=== PATIENT | female | born 1985 | race Caucasian/White ===

== ENCOUNTER → 2017-09-14 | Outpatient (CLI) | payer BC | END | disposition home or self-care (01) | LOC: C.PAPS 18:05 | PROVIDERS: ATTEND Obstetrics & Gynecology | DX: Z01.419 Encounter for gynecological examination (general) (routine) without abnormal findings (principal) ==

== ENCOUNTER 2018-07-21 13:26 | Inpatient (IN) ==
[2018-07-21] MEDS ORDERED: OXYTOCIN 30 UNITS/500 ML BAG IV PRN ×2 (17:33)
[2018-07-21] MEDS ORDERED: PENICILLIN G POTASSIUM 6 MU in DEXTROSE 5% 250 ML IV STA (17:42)
[2018-07-21 17:56] LABS: Hematocrit (blood only) 36.6 % (37-47); Hemoglobin 12.1 g/dL (12.0-16.0); Mean Corpuscular Volume 85.1 fL (80-100); Mean Platelet Volume 10.9 fL (7.4-10.4); Platelet Count 157 K/uL (130-400); RDW Coefficient of Variation 14.1 % (11.5-14.5); RDW Standard Deviation 43.5 fL (36.4-46.3); White Blood Count 7.35 K/uL (4.8-10.8)
[2018-07-21 18:07] LABS: Mean Corpuscular Hgb Conc 33.1 g/dL (32-36)
[2018-07-21] MEDS: LACTATED RINGER'S 1,000 ML IV PRN ×2 (18:07→21:38)
--- NOTE | 2018-07-21 20:24 | History & Physical Report ---
Date of Service July 21, 2018 Assessment & Plan (1) Post term : 32yo at 40.6 weeks GA. IOL for post term . 1. Fetus: Cat 1 2. Labor: Oxytocin, AROM when complete on PCN 3. Vitals: WNL 4. GBS+: PCN 5: Pain: Epidural PRN (2) GBS carrier: (3) conceived through in vitro fertilization: History of Present Illness Primary Care Provider: NO PCP 32yo at 40.6 weeks GA. Patient present for late term IOL. complicated by IVF , Hx of HSV, GBS+. Denies VB, LOF or regular contractions. Good FM Allergies Allergy/AdvReac Type Severity Reaction Status Date / Time No Known Allergies Allergy Verified 07/21/18 17:37 Home Medications Home Medications Medication Instructions Recorded Confirmed Type PNV cmb#95-ferrous fumarate-FA 1 tab PO DAILY 07/21/18 07/21/18 History [] pantoprazole [Protonix] 40 mg PO DAILY 07/21/18 07/21/18 History valacyclovir [Valtrex] 500 mg PO DAILY 07/21/18 07/21/18 History Patient History Medical History and not yet delivered (Acute) History of Family History Other No pertinent family history Social History Preferred Language: Yi Communication Ability: Effective Beliefs That Will Affect Care: None marital status: Current Living Situation: Family Other Information That Helps Us Care for You: No Feels Safe at Home: Yes Safety Concerns: Feels Safe At This Time Smoking Status: Never smoker Hx Alcohol Use: No Hx Substance Use: No Physical Exam Genitourinary: OB Exam Abdomen: + vertex Manual OB Exam: + cervical dilation 2 cm, + cervical effacement 40% and + station -2 OB Exam Monitor Tracing: + external FHT monitor used, + external uterine monitor used and + category I Results & Data Vital Signs (Past 12 Hours) Vital Signs Temp Pulse Resp BP 07/21/18 19:45 18 07/21/18 19:17 80 119/77 07/21/18 18:30 18 07/21/18 18:17 85 123/84 07/21/18 16:37 36.8 C 84 18 123/80 07/21/18 16:27 84 123/80
[2018-07-21] MEDS ORDERED: ePHEDrine sulfate 50 MG/ML AMP ONE (21:52)
[2018-07-21] MEDS ORDERED: BUPIVACAINE 0.25% 30 ML VIAL ONE (21:52)
[2018-07-21] MEDS ORDERED: fentaNYL 2MCG/ML ROPIV 1.25MG/ML 100 ML BAG EPI ONE (21:53)
[2018-07-21] MEDS ORDERED: fentaNYL citrate 100 MCG/2 ML VIAL ONE (21:53)
[2018-07-21] MEDS: PENICILLIN G POTASSIUM 3 MU in DEXTROSE 5% 100 ML IV PRN (22:04)
--- NOTE | 2018-07-21 22:55 | Anesthesiology Consultation ---
Date of Service July 21, 2018 Assessment & Plan Chart Review Chart Review: Acceptable Risk for Labor Epidural Consults Requested none History Height/Weight Height: 5 ft 3 in Weight: 92.714 kg Allergies Allergy/AdvReac Type Severity Reaction Status Date / Time No Known Allergies Allergy Verified 07/21/18 17:37 Medications Home Medications Medication Instructions Recorded Confirmed Last Taken PNV cmb#95-ferrous fumarate-FA 1 tab PO DAILY 07/21/18 07/21/18 07/20/18 [] pantoprazole [Protonix] 40 mg PO DAILY 07/21/18 07/21/18 07/21/18 valacyclovir [Valtrex] 500 mg PO DAILY 07/21/18 07/21/18 07/20/18 Active Medications Generic Name Dose Route Start Last Admin Trade Name Freq PRN Reason Stop Dose Admin Lactated Ringer's 1,000 mls @ 125 mls/hr 07/21/18 17:33 07/21/18 22:15 Lr IV 07/23/18 17:32 0 mls/hr .Q8H PRN Infusion L&D Protocol Protocol Penicillin G Potassium 3 mu/ 106 mls @ 100 mls/hr 07/21/18 17:33 07/21/18 22:04 Dextrose IV 07/31/18 17:32 100 mls/hr Q4H PRN Administration Give until delivery Oxytocin 30 units in 500 mls @ 8 mls/hr 07/21/18 17:33 07/21/18 19:45 Pitocin IV 07/23/18 17:32 0.48 units/hr .Q24H PRN 8 mls/hr Labor Induction/Augmentation Titration Protocol 0.48 UNITS/HR Past Medical History Medical History and not yet delivered (Acute) History of Past Family History Family History Other No pertinent family history Social History Smoking Status: Never smoker Hx Alcohol Use: No Hx Substance Use: No Physical Exam Vital Signs Last Vital Signs Temp 36.8 C 07/21/18 16:37 Pulse 86 07/21/18 22:51 Resp 18 07/21/18 22:00 BP 111/69 07/21/18 22:51 Pulse Ox 97 07/21/18 22:49
[2018-07-21] MEDS ORDERED: NALOXONE HCL 1 MG in SODIUM CHLORIDE 0.9% 1000ML 1,000 ML IV PRN (22:57)
[2018-07-21] MEDS ORDERED: NALBUPHINE HCL INJ 10 MG/ML AMP IV PRN (22:57)
[2018-07-21] MEDS ORDERED: DiphenhydrAMINE HCL 50 MG/ML VIAL IV PRN (22:57)
[2018-07-21] MEDS ORDERED: NALOXONE HCL 0.4 MG/1 ML VIAL/CARP IV PRN (22:57)
[2018-07-21] MEDS ORDERED: fentaNYL 2MCG/ML ROPIV 1.25MG/ML 100 ML BAG EPI PRN (22:57)
--- NOTE | 2018-07-21 23:33 | Obstetrical Progress Note ---
Date of Service July 21, 2018 Assessment & Plan (1) Post term : 32yo at 40.6 weeks GA. IOL for post term . 1. Fetus: Cat 1 2. Labor: Oxytocin, AROM clear 3. Vitals: WNL 4. GBS+: PCN 5: Pain: Epidural PRN (2) GBS carrier: (3) conceived through in vitro fertilization: Subjective Doing well. Physical Exam Genitourinary: OB Exam Abdomen: + vertex Manual OB Exam: + cervical dilation (2.5), + cervical effacement 40%, + station -2 and + amniotic fluid clear OB Exam Monitor Tracing: + external FHT monitor used, + external uterine monitor used, + category I and + normal FHT variability Results & Data Vital Signs (Past 12 Hours) Vital Signs Temp Pulse Resp BP Pulse Ox 07/21/18 23:29 79 98 07/21/18 23:25 71 112/71 07/21/18 23:24 69 97 07/21/18 23:19 77 98 07/21/18 23:15 74 116/72 07/21/18 23:14 80 98 07/21/18 23:09 80 97 07/21/18 23:04 89 115/71 96 07/21/18 23:03 81 109/70 07/21/18 23:01 80 108/69 07/21/18 22:59 37.0 C 81 18 96 07/21/18 22:58 82 106/69 07/21/18 22:55 85 107/70 07/21/18 22:54 84 97 07/21/18 22:51 86 111/69 07/21/18 22:49 85 110/69 97 07/21/18 22:46 88 119/78 07/21/18 22:44 98 H 98 07/21/18 22:43 93 H 114/74 07/21/18 22:41 89 120/78 07/21/18 22:39 94 H 98 07/21/18 22:37 94 H 87 L 07/21/18 22:34 99 H 100 07/21/18 22:29 92 H 98 07/21/18 22:24 87 100 07/21/18 22:19 88 100 07/21/18 22:14 83 100 07/21/18 22:09 82 99 07/21/18 22:04 84 100 07/21/18 22:00 18 07/21/18 21:59 85 100 07/21/18 21:54 82 100 07/21/18 21:49 77 100 07/21/18 21:44 90 87 L 07/21/18 21:39 108 H 83 L 07/21/18 21:34 75 81 L 07/21/18 20:21 85 129/83 07/21/18 19:45 18 07/21/18 19:17 80 119/77 07/21/18 18:30 18 07/21/18 18:17 85 123/84 07/21/18 16:37 36.8 C 84 18 123/80 07/21/18 16:27 84 123/80
[2018-07-22] MEDS: PENICILLIN G POTASSIUM 3 MU in DEXTROSE 5% 100 ML IV PRN ×3 (01:56→10:16)
[2018-07-22] MEDS: LACTATED RINGER'S 1,000 ML IV PRN ×2 (01:56→05:28)
[2018-07-22] MEDS: ePHEDrine sulfate 50 MG/ML AMP IV PRN ×2 (04:53→05:15)
[2018-07-22] MEDS ORDERED: ONDANSETRON INJ 2 MG/ML 2 ML VIAL ONE (04:57)
[2018-07-22] MEDS ORDERED: ONDANSETRON INJ 2 MG/ML 2 ML VIAL IV PRN (04:59)
[2018-07-22] MEDS ORDERED: fentaNYL citrate 100 MCG/2 ML VIAL ONE (07:15)
[2018-07-22] MEDS ORDERED: BUPIVACAINE 0.25% 30 ML VIAL ONE (07:15)
[2018-07-22] MEDS ORDERED: OXYCODONE/ACETAMINOPHEN 5mg/325mg TAB PO PRN (12:53)
[2018-07-22] MEDS ORDERED: SUPERCREAM 0.870% 15 GM JAR EXT PRN (12:53)
[2018-07-22] MEDS ORDERED: BENZOCAINE 20% AER SPR 82.5 GM CAN EXT PRN (12:53)
[2018-07-22] MEDS ORDERED: miSOPROStol 200 MCG TAB PR ONE (12:53)
[2018-07-22] MEDS ORDERED: DIPHTHERIA/TETANUS/PERTUSSIS 0.5 ML SYR/VIAL IM ONE (12:53)
[2018-07-22] MEDS ORDERED: HYDROCORTISONE ACETATE 25 MG SUPP PR PRN (12:53)
[2018-07-22] MEDS ORDERED: ACETAMINOPHEN 325 MG TAB PO PRN (12:53)
--- NOTE | 2018-07-22 13:48 | Anesthesia Procedure Note ---
Date of Service July 22, 2018 Anesthesia Post Epidural Note Vital Signs Vital Signs: Temp Pulse Resp BP Pulse Ox 07/22/18 13:27 93 H 108/59 L 07/22/18 13:03 96 H 108/71 07/22/18 12:52 90 106/72 07/22/18 12:32 56 L 108/58 L 07/22/18 12:16 98 H 109/63 07/22/18 12:11 102 H 111/64 07/22/18 12:00 22 07/22/18 11:56 107 H 129/73 07/22/18 11:49 114 H 73 L 07/22/18 11:44 115 H 97 07/22/18 11:41 115 H 134/80 07/22/18 11:39 116 H 95 07/22/18 11:35 116 H 89 L 07/22/18 11:34 113 H 89 L 07/22/18 11:30 20 07/22/18 11:29 96 H 96 07/22/18 11:27 96 H 111/69 07/22/18 11:24 98 H 93 07/22/18 11:19 96 H 93 07/22/18 11:14 93 H 94 07/22/18 11:12 92 H 106/62 07/22/18 11:09 93 H 93 07/22/18 11:05 36.8 C 07/22/18 11:04 95 H 94 07/22/18 11:00 22 07/22/18 10:59 107 H 93 07/22/18 10:57 99 H 98/57 L 07/22/18 10:54 98 H 95 07/22/18 10:49 104 H 93 07/22/18 10:44 110 H 104/56 L 96 07/22/18 10:39 119 H 97 07/22/18 10:38 109 H 84 L 07/22/18 10:34 104 H 96 07/22/18 10:30 16 07/22/18 10:29 106 H 96 07/22/18 10:26 108 H 122/68 07/22/18 10:24 97 H 98 07/22/18 10:19 91 H 100 07/22/18 10:14 78 93 07/22/18 10:11 82 112/75 07/22/18 10:09 80 95 07/22/18 10:04 89 93 07/22/18 10:00 16 07/22/18 09:59 77 94 07/22/18 09:56 80 113/75 07/22/18 09:54 79 94 07/22/18 09:49 82 94 07/22/18 09:44 81 93 07/22/18 09:41 82 111/75 07/22/18 09:39 76 94 07/22/18 09:34 80 93 07/22/18 09:31 20 07/22/18 09:29 82 94 07/22/18 09:26 80 111/71 07/22/18 09:24 85 93 07/22/18 09:19 80 94 07/22/18 09:14 80 95 07/22/18 09:11 78 108/68 07/22/18 09:09 84 93 07/22/18 09:04 36.9 C 89 18 96 07/22/18 08:59 87 93 07/22/18 08:56 78 113/76 07/22/18 08:54 79 95 07/22/18 08:49 78 95 07/22/18 08:44 86 95 07/22/18 08:42 87 111/65 07/22/18 08:39 90 97 07/22/18 08:34 78 98 07/22/18 08:30 16 07/22/18 08:29 81 96 07/22/18 08:26 93 H 108/76 07/22/18 08:24 98 H 96 07/22/18 08:19 98 H 97 07/22/18 08:14 98 H 95 07/22/18 08:10 93 H 114/83 07/22/18 08:09 80 95 07/22/18 08:08 81 108/75 07/22/18 08:06 82 111/76 07/22/18 08:04 81 110/74 95 07/22/18 08:02 87 108/74 07/22/18 08:00 90 16 112/76 07/22/18 07:59 86 97 07/22/18 07:58 90 115/79 07/22/18 07:56 83 106/71 07/22/18 07:54 82 105/71 94 07/22/18 07:52 92 H 109/70 07/22/18 07:50 78 109/68 07/22/18 07:49 79 95 07/22/18 07:48 82 111/71 07/22/18 07:46 83 113/72 07/22/18 07:44 88 111/76 95 07/22/18 07:42 82 109/74 07/22/18 07:40 90 118/67 07/22/18 07:39 87 96 07/22/18 07:38 93 H 123/82 07/22/18 07:36 90 114/78 07/22/18 07:35 94 H 129/68 07/22/18 07:34 96 H 98 07/22/18 07:32 88 117/86 07/22/18 07:30 88 20 115/81 07/22/18 07:29 93 H 97 07/22/18 07:28 85 117/77 07/22/18 07:26 78 122/78 07/22/18 07:24 80 124/81 97 07/22/18 07:22 85 120/79 07/22/18 07:20 85 116/76 07/22/18 07:19 82 96 07/22/18 07:14 89 96 07/22/18 07:12 100 H 133/84 07/22/18 07:09 84 98 07/22/18 07:04 106 H 97 07/22/18 07:00 37.1 C 16 07/22/18 06:59 88 97 07/22/18 06:57 96 H 118/78 07/22/18 06:54 93 H 97 07/22/18 06:49 91 H 93 07/22/18 06:44 89 95 07/22/18 06:42 102 H 114/74 07/22/18 06:39 80 94 07/22/18 06:34 89 94 07/22/18 06:30 16 07/22/18 06:29 89 95 07/22/18 06:28 78 112/70 07/22/18 06:24 82 94 07/22/18 06:19 93 H 94 07/22/18 06:14 86 93 07/22/18 06:12 85 104/67 07/22/18 06:09 84 95 07/22/18 06:04 85 95 07/22/18 06:00 18 07/22/18 05:59 92 H 97 07/22/18 05:57 83 111/66 07/22/18 05:54 86 96 07/22/18 05:49 84 93 07/22/18 05:44 86 94 07/22/18 05:42 79 106/62 07/22/18 05:39 79 95 07/22/18 05:34 82 96 07/22/18 05:30 16 07/22/18 05:29 86 97 07/22/18 05:27 88 114/69 07/22/18 05:26 97 H 97/65 L 07/22/18 05:24 107 H 94 07/22/18 05:21 100 H 89/55 L 07/22/18 05:19 85 93 07/22/18 05:17 87 110/67 07/22/18 05:15 102 H 86/53 L 07/22/18 05:14 92 H 94 07/22/18 05:13 99 H 79/51 L 07/22/18 05:09 97 H 93 07/22/18 05:04 91 H 92 07/22/18 05:02 94 H 113/61 07/22/18 05:00 37.0 C 16 07/22/18 04:59 101 H 98 07/22/18 04:56 110 H 117/56 L 07/22/18 04:54 89 83/51 L 100 07/22/18 04:51 96 H 82/51 L 07/22/18 04:49 80 94 07/22/18 04:44 91 H 94 07/22/18 04:41 103 H 85/52 L 07/22/18 04:39 89 94 07/22/18 04:34 83 95 07/22/18 04:30 16 07/22/18 04:29 78 96 07/22/18 04:25 82 106/64 07/22/18 04:24 79 95 07/22/18 04:19 76 93 07/22/18 04:14 74 93 07/22/18 04:10 82 105/63 07/22/18 04:09 84 94 07/22/18 04:04 70 93 07/22/18 04:00 16 07/22/18 03:59 82 93 07/22/18 03:55 68 106/62 07/22/18 03:54 71 93 07/22/18 03:49 69 95 07/22/18 03:44 73 93 07/22/18 03:41 68 103/64 07/22/18 03:39 80 93 07/22/18 03:34 75 93 07/22/18 03:30 16 07/22/18 03:29 72 94 07/22/18 03:27 68 106/62 07/22/18 03:24 73 93 07/22/18 03:19 69 94 07/22/18 03:14 75 94 07/22/18 03:11 73 108/68 94 07/22/18 03:09 82 93 07/22/18 03:04 70 94 07/22/18 03:00 36.9 C 18 07/22/18 02:59 75 94 07/22/18 02:56 71 108/67 07/22/18 02:55 93 H 94 07/22/18 02:54 87 94 07/22/18 02:49 90 94 07/22/18 02:47 72 94 07/22/18 02:44 78 94 07/22/18 02:40 68 96/61 L 07/22/18 02:39 69 94 07/22/18 02:34 68 94 07/22/18 02:30 76 93 07/22/18 02:29 72 94 07/22/18 02:25 64 108/68 07/22/18 02:24 80 94 07/22/18 02:19 69 94 07/22/18 02:18 69 94 07/22/18 02:14 72 94 07/22/18 02:11 68 94 07/22/18 02:10 67 103/68 07/22/18 02:09 70 94 07/22/18 02:05 80 93 07/22/18 02:04 73 96 07/22/18 02:00 18 07/22/18 01:59 83 96 07/22/18 01:55 74 114/69 07/22/18 01:54 83 98 07/22/18 01:49 67 95 07/22/18 01:44 69 96 07/22/18 01:42 67 105/67 07/22/18 01:39 66 96 07/22/18 01:34 71 96 07/22/18 01:29 71 98 07/22/18 01:25 70 106/70 07/22/18 01:24 67 98 07/22/18 01:19 73 98 07/22/18 01:14 82 99 07/22/18 01:11 71 114/68 07/22/18 01:09 86 97 07/22/18 01:04 86 100 07/22/18 01:00 18 07/22/18 00:59 96 H 98 07/22/18 00:57 93 H 127/82 07/22/18 00:54 84 98 07/22/18 00:49 67 96 07/22/18 00:44 72 96 07/22/18 00:41 71 105/71 07/22/18 00:39 79 98 07/22/18 00:34 71 98 07/22/18 00:29 68 94 07/22/18 00:26 70 107/72 07/22/18 00:24 72 94 07/22/18 00:21 67 94 07/22/18 00:19 67 94 07/22/18 00:15 75 94 07/22/18 00:14 73 95 07/22/18 00:11 68 106/75 07/22/18 00:09 75 93 07/22/18 00:04 74 96 07/22/18 00:03 74 94 07/22/18 00:00 18 07/21/18 23:59 69 95 07/21/18 23:57 68 111/76 07/21/18 23:54 75 95 07/21/18 23:49 73 96 07/21/18 23:44 72 98 07/21/18 23:40 73 109/71 07/21/18 23:39 76 96 07/21/18 23:34 79 98 07/21/18 23:29 79 98 07/21/18 23:25 71 112/71 07/21/18 23:24 69 97 07/21/18 23:19 77 98 07/21/18 23:15 74 116/72 07/21/18 23:14 80 98 07/21/18 23:09 80 97 07/21/18 23:04 89 115/71 96 07/21/18 23:03 81 109/70 07/21/18 23:01 80 108/69 07/21/18 22:59 37.0 C 81 18 96 07/21/18 22:58 82 106/69 07/21/18 22:55 85 107/70 07/21/18 22:54 84 97 07/21/18 22:51 86 111/69 07/21/18 22:49 85 110/69 97 07/21/18 22:46 88 119/78 07/21/18 22:44 98 H 98 07/21/18 22:43 93 H 114/74 07/21/18 22:41 89 120/78 07/21/18 22:39 94 H 98 07/21/18 22:37 94 H 87 L 07/21/18 22:34 99 H 100 07/21/18 22:29 92 H 98 07/21/18 22:24 87 100 07/21/18 22:19 88 100 07/21/18 22:14 83 100 07/21/18 22:09 82 99 07/21/18 22:04 84 100 07/21/18 22:00 18 07/21/18 21:59 85 100 07/21/18 21:54 82 100 07/21/18 21:49 77 100 07/21/18 21:44 90 87 L 07/21/18 21:39 108 H 83 L 07/21/18 21:34 75 81 L 07/21/18 20:21 85 129/83 07/21/18 19:45 18 07/21/18 19:17 80 119/77 07/21/18 18:30 18 07/21/18 18:17 85 123/84 07/21/18 16:37 36.8 C 84 18 123/80 07/21/18 16:27 84 123/80 Pain Intensity Right Lower Back: Pain Intensity: 7 Notes Mental Status: alert / awake / arousable Patient Amnestic to Procedure: No Nausea / Vomiting: adequately controlled Pain: adequately controlled Airway Patency, RR, SpO2: stable & adequate BP & HR: stable & adequate Hydration State: stable & adequate Anesthetic Complications: no major complications apparent Epidural: Removed without complications and With tip intact Notes: Pt doing well. VSS. Epidural site looks clean and dry without signs of erythema or edema
--- NOTE | 2018-07-22 14:26 | Procedure Note ---
Vaginal Delivery Summary Date of Service July 22, 2018 Patient pushed to deliver a viable in OA position. The head restituted occiput left, and a tight double nuchal cord was reduced. Then, without any additional maternal effort, the shoulders spontaneously delivered followed by the rest of the body. The received tactile stim and bulb suction on the maternal abdomen while cord was doubly clamped and cut by FOB. Placenta S/I/3VC. A second degree tear was repaired with vicryl in the usual manner, including a crown stitch to rebuild the perineal body. The cervix was examined circumferentially and there were no cervical or vaginal tears. Due to EBL of 500, cytotec 1000mcg was administered rectally after counseling the patient on risks and benefits. The fundus was firm after each uterine massage and lochia had slowed to a trickle by end of procedure.
[2018-07-22] MEDS ORDERED: miSOPROStol 200 MCG TAB ONE (15:03)
[2018-07-22] MEDS: IBUPROFEN 600 MG TAB PO PRN (20:33)
[2018-07-22] MEDS: DOCUSATE SODIUM 100 MG CAP PO SCH (20:34)
[2018-07-23] MEDS: IBUPROFEN 600 MG TAB PO PRN ×2 (00:27→19:50)
[2018-07-23 07:41] LABS: Hematocrit (blood only) 25.4 % (37-47); Hemoglobin 8.5 g/dL (12.0-16.0); Mean Corpuscular Hgb Conc 33.5 g/dL (32-36); Mean Corpuscular Volume 85.8 fL (80-100); Mean Platelet Volume 10.6 fL (7.4-10.4); Platelet Count 138 K/uL (130-400); RDW Coefficient of Variation 14.3 % (11.5-14.5); RDW Standard Deviation 43.8 fL (36.4-46.3); Red Blood Count 2.96 M/uL (4.2-5.4); White Blood Count 10.23 K/uL (4.8-10.8)
--- NOTE | 2018-07-23 07:44 | Obstetrical Progress Note ---
Date of Service July 23, 2018 Assessment & Plan (1) Post term : Delivered vaginally PPD1 now, and recovering normally Post-term type: 40-42 weeks gestation Qualified Code(s): O48.0 - Post-term Present on Admission?: Yes Subjective Ambulation: ambulating normally Voiding: no voiding problems Passing Gas:: Yes Diet Tolerance:: regular diet Lochia:: Small Feeding Type:: breast feeding Current Pain Level(1-10): 0 Respiratory: no cough and no dyspnea Cardiovascular: no chest pain Breast: no problem reported Gastrointestinal: no nausea and no vomiting Genitourinary (male): no difficulty urinating Lochia decreasing Psychiatric: no depression Physical Exam Vital Signs (Past 24 Hours) Last Vital Signs Temp 36.5 C 07/23/18 03:45 Pulse 71 07/23/18 03:45 Resp 18 07/23/18 03:45 BP 103/66 07/23/18 03:45 Pulse Ox 73 L 07/22/18 11:49 Constitutional WD/WN, vitals as above no acute distress Respiratory normal respiratory effort and able to speak in complete sentences; no respirato ry distress and does not use accessory muscles Cardiovascular Rate/Rhythm: regular rate and regular rhythm Extremities: no calf tenderness Negative Kelli's Gastrointestinal (Abdomen) Post-gravid, fundus firm at umbilicus Psychiatric Affect: euthymic affect Genitourinary Speculum/Bimanual Exam: uterus nontender Results & Data Laboratory Results Laboratory Results - last 24 hr 07/23/18 07:26 WBC 10.23 RBC 2.96 L Hgb 8.5 L D Hct 25.4 L MCV 85.8 MCH 28.7 MCHC 33.5 RDW Std Deviation 43.8 RDW Coeff of [place] 14.3 Plt Count 138 MPV 10.6 H
[2018-07-23] MEDS: DOCUSATE SODIUM 100 MG CAP PO SCH ×2 (10:25→19:50)
[2018-07-23] MEDS: PANTOprazole 40 MG TAB PO SCH (10:25)
--- NOTE | 2018-07-24 06:14 | Obstetrical Progress Note ---
Date of Service <Andrey Rojas MD - Last Filed: 07/24/18 06:16> July 24, 2018 Assessment & Plan <Andrey Rojas MD - Last Filed: 07/24/18 06:16> (1) Vaginal delivery: Ora is a 32yo who presented at 40+6 for induction of labor now s/p vaginal delivery now PPD#2 - Feels well today. Eating well, voiding well, ambulating well. - She is A-, babies blood type is O-. - GBS+, received peripartum PCN - Pain well controlled with ibuprofen 600mg Q4H PRN. - Routine care - After discharge will have [address] Reyes Subjective <Andrey Rojas MD - Last Filed: 07/24/18 06:16> Ambulation: ambulating normally Voiding: no voiding problems Passing Gas:: Yes Diet Tolerance:: regular diet Lochia:: Moderate Feeding Type:: breast feeding Current Pain Level(1-10): 0 Review of Systems Denies fever, chills, sweats Denies shortness of breath, difficulty breathing, chest pain, palpitations, chest pressure. Denies breast pain. Denies dysuria. Denies headache. Physical Exam <Andrey Rojas MD - Last Filed: 07/24/18 06:16> Vital Signs (Past 24 Hours) Last Vital Signs Temp 36.8 C 07/24/18 00:00 Pulse 82 07/24/18 00:00 Resp 18 07/24/18 00:00 BP 96/60 L 07/24/18 00:00 Pulse Ox 73 L 07/22/18 11:49 General: Alert, oriented. No acute distress. Cardiac: Regular rate and rhythm, no murmurs/rubs/gallops. Respiratory: Clear to auscultation anterior and posteriorly, no wheezes/rales/rhonchi. No increased work of breathing. Symmetrical chest rise. No respiratory distress. Abdomen: Soft, nontender, nondistended. Bowel sounds present. Uterus: Uterine fundus firm, palpable 1cm below umbilicus. Lower Extremities: No lower extremity edema or swelling. No deep calf pain. Kelli's negative bilaterally. <Ernestine Reyes MD - Last Filed: 07/24/18 06:55> Co-Signing Physician Notes I have reviewed the resident's note and examined the patient myself, and agree with the note above. Resident Activity Tracking <Andrey Rojas MD - Last Filed: 07/24/18 06:16> Resident Involvement: Resident Care Provided Care Provided: Adult Hospital Medicine
[2018-07-24 06:37] LABS: Hemoglobin 8.3 g/dL (12.0-16.0)
[2018-07-24] MEDS: DOCUSATE SODIUM 100 MG CAP PO SCH (08:49)
[2018-07-24] MEDS: PANTOprazole 40 MG TAB PO SCH (08:49)
[2018-07-24] MEDS: IBUPROFEN 600 MG TAB PO PRN (14:57)
== END 2018-07-24 17:49 | disposition home or self-care (01) | DRG 807 ==
LOC: 4S1 16:19 → 4S2 07-22 14:55